=== PATIENT | male | born 1965 | race Caucasian/White ===

== ENCOUNTER 2020-07-06 15:11 | Emergency (ER) | payer OTHER ==
[~2020-07-06] VITALS: Ht 180.3 cm; Wt 124.5 kg
[~2020-07-06 15:11] MED LIST: E.E.S. 400400 MG OR; METOPROLOL50 MG OR; ROBITUSSIN AC10 ML OR; ZESTRIL40 MG OR
[2020-07-06] MEDS ORDERED: ASPIRIN81 MG PO (15:39)
[2020-07-06 15:59] LABS: IMMATURE GRANULOCYTES 0.5 % (0.0-5.0); MEAN CELL VOLUME 89.5 fL CALC (80.0-100.0); MEAN CORPUSCULAR HGB 30.9 pG CALC (26.0-32.0); MEAN CORPUSCULAR HGB CONC 34.5 g/dL CAL (32.0-36.0); NEUT# 5.4 thou/uL (1.82-7.42); RED BLOOD COUNT 5.6 mill/uL (4.70-6.10); RED CELL DISTRI WIDTH 12.8 % (11.5-15.5)
[2020-07-06 16:00] LABS: ALBUMIN 4.6 g/dL (3.2-5.0); ALKALINE PHOSPHATASE 69 u/l (38-126); ANION GAP 14 (6-22 (CALC)); BUN 18 mg/dL (9-20); BUN/CREATININE RATIO 16 (12-20 (CALC)); CARBON DIOXIDE 27 mmol/l (22-30); CHLORIDE 100 mmol/l (95-108); CREATININE 1.1 mg/dL (0.7-1.3); GFR > 60 ML/MIN (>=60 (CALC)); GFR FOR AFR.AMER. > 60 ML/MIN (>=60 (CALC)); HEMATOCRIT 50.1 % (39.0-50.0); HEMOGLOBIN 17.3 g/dl (14.0-18.0); POTASSIUM 3.9 mmol/l (3.5-5.1); SGOT/AST 41 u/l (17-59); SODIUM 138 mmol/l (137-146); TOTAL PROTEIN 8.3 g/dL (6.3-8.2)
[2020-07-06 16:01] LABS: BILIRUBIN, TOTAL 1.2 mg/dL (0.0-1.4)
[2020-07-06 20:34] VITALS: BP 176/109
== END 2020-07-06 20:34 | DRG 69 ==
LOC: ED 15:11
PROVIDERS: Family Medicine
DX: G45.9 Transient cerebral ischemic attack, unspecified (principal); I10 Essential (primary) hypertension; F17.200 Nicotine dependence, unspecified, uncomplicated

== ENCOUNTER 2020-07-26 | Emergency (ER) | payer OTHER ==
[~2020-07-26] MED LIST changes: +ASPIRIN81 MG PO; -ZESTRIL40 MG OR; +ZESTRIL40 MG PO
[2020-07-26] MEDS ORDERED: METOPROL TAR25 MG PO (01:53)
[2020-07-26] MEDS ORDERED: PRAVASTATIN20 MG PO (01:54)
== END 2020-07-26 03:00 | disposition home or self-care (01) | DRG 305 ==
DX: I10 Essential (primary) hypertension (principal); F17.200 Nicotine dependence, unspecified, uncomplicated